=== PATIENT | female | born 1945 | race Caucasian/White ===

== ENCOUNTER 2021-08-15 08:15 | Outpatient (CLI) | payer MEDICARE ==
[2021-08-15 10:16] LABS: Hemoglobin 12.7 g/dL (12.0-15.5); Mean Corpuscular HGB CONC 31.2 g/dL (32.0-36.0); Mean Corpuscular Volume 92.9 fl (81.6-98.3); Mean Platelet Volume 10.9 fl (7.4-10.4); Platelet Count 311 10x3/uL (150-450); RBC Distribution Width 12.9 % (11.5-14.5); Red Blood Cell (RBC) Count 4.38 10x6/uL (3.90-5.03); White Blood Cell (WBC) Count 5.9 10x3/uL (3.5-10.5)
[2021-08-15 10:32] LABS: Anion Gap 15 mmol/L (10-20); BUN (Urea Nitrogen) 18 mg/dL (9.8-20.1); Calc. Creatinine Clearance 0 mL/min (70-130); Calcium 9.4 mg/dL (7.8-10.44); Carbon Dioxide 25 mmol/L (23-31); Chloride 108 mmol/L (98-107); Glucose 81 mg/dL (83-110); Potassium 4.1 mmol/L (3.5-5.1); Sodium 144 mmol/L (136-145)
[2021-08-15 18:42] LABS: SARS-CoV-2 PCR by NAA DETECTED (NotDetected)
== END 2021-08-15 08:16 | disposition home or self-care (01) ==
LOC: CSHLAB 08:15
PROVIDERS: ATTEND Otolaryngology Otolaryngic Allergy
DX: U07.1 COVID-19 (principal); D10.1 Benign neoplasm of tongue
CPT/HCPCS: 80048; 85027; 93005; 93010; U0003; U0005